=== PATIENT | female | born 1975 | race American Indian/Alaskan Native ===

== ENCOUNTER 2017-05-07 23:02 | Emergency (ER) | payer MEDICAID ==
[2017-05-07 23:03] VITALS: BMI 22.4
[2017-05-07 23:12] VITALS: BP 134/89; PULSE 88; RESP 18; TEMP 98.3; O2SAT 99
--- NOTE | 2017-05-07 23:35 | ED PDOC ---
Arrival/HPI - General Chief Complaint: Chest Pain Time Seen by Provider: 05/07/17 23:27 Historian: Patient - History of Present Illness Narrative History of Present Illness (Text): 05/07/17 23:29 A 42 year old female, whose past medical history include hyperthyroidism and heart murmur, presents to the emergency department complaining of 4 day duration , worsening sharp left peristernal chest, neck and left foot pain. The patient states that she was seen at a different emergency department last night for her symptoms and was discharged home. She states that she called EMS today because the sharp chest pain became worse. She notes that the sharp foot pain starts at the bottom of her foot and radiates upward. The patient states that she has also been seeing a flashing light through her left eye, feeling lightheaded and off balance. The patient denies fevers, chills, headache, shortness of breath, dyspnea on exertion, cough, abdominal pain, nausea, vomiting, diarrhea, back pain, urinary/bowel changes, trauma/ injury, drug/alcohol use or any other complaint. PMD: Dr. Barragan Time/Duration: Other (4 Days) Symptom Onset: Sudden Symptom Course: Unchanged Activities at Onset: Rest, Light Context: Home Past Medical History - Provider Review Nursing Documentation Reviewed: Yes - Tetanus Immunization Tetanus Immunization: Unknown - Past Medical History Past Medical History: No Previous - Endocrine/Metabolic Hx Hyperthyroidism: Yes - Psychiatric Hx Substance Use: No - Surgical History Hx Cholecystectomy: Yes - Suicidal Assessment Feels Threatened In Home Enviroment: No Family/Social History - Physician Review Nursing Documentation Reviewed: Yes Family/Social History: No Known Family HX Smoking Status: Heavy Smoker > 10 Cigarettes Daily Hx Alcohol Use: No Hx Substance Use: No Hx Substance Use Treatment: No Allergies/Home Meds Allergies/Adverse Reactions: Allergies No Known Allergies Allergy (Verified 06/28/14 05:43) Home Medications: Home Meds Medication Instructions Recorded Confirmed No Known Home Med 05/07/17 05/07/17 Review of Systems - Physician Review All systems were reviewed & negative as marked: Yes - Review of Systems Constitutional: absent: Fevers Respiratory: absent: SOB Physical Exam - Physical Exam Narrative Physical Exam (Text): 05/07/17 23:36 Constitutional: No acute distress. Head: Normocephalic. Atraumatic. Eyes: PERRL. ENT: Moist mucous membranes. Neck: Supple. Cardiovascular: Regular rate. Chest: No tenderness. Respiratory: Clear to auscultation bilaterally. GI: Soft. Nontender. Nondistended. Back: No CVA tenderness. Musculoskeletal: No tenderness or swelling of extremities. Skin: No rash. Patches of hypopigmentation. Neurologic: Alert, no focal deficit. Vital Signs Reviewed: Yes Vital Signs Temp Pulse Resp BP Pulse Ox 05/07/17 23:11 98.3 F 88 18 134/89 99 Temperature: Afebrile Blood Pressure: Normal Pulse: Regular Respiratory Rate: Normal Appearance: Positive for: Well-Appearing, Non-Toxic, Comfortable Pain Distress: None Mental Status: Positive for: Alert and Oriented X 3 Medical Decision Making ED Course and Treatment: 05/07/17 23:36 Impression: A 42 year old female presents to the emergency department complaining of 4 day duration sharp chest, foot, and neck pain. Plan: -- EKG -- Chest X-ray -- Urinalysis -- Labs -- Reassess and disposition Progress Notes: EKG: Ordered, reviewed, and independently interpreted the EKG. Rate : 99 BPM Rhythm : NSR Interpretation : No ST elevations or T-wave inversions. 05/08/17 01:02: Patient eloped. - Lab Interpretations Lab Results: 05/07/17 23:15 05/07/17 23:15 Lab Results 05/07/17 23:37: Urine Opiates Screen Negative, Urine Methadone Screen Negative, Ur Barbiturates Screen Negative, Ur Phencyclidine Scrn Negative, Ur Amphetamines Screen Negative, U Benzodiazepines Scrn Negative, U Oth Cocaine Metabols Negative, U Cannabinoids Screen Negative 05/07/17 23:37: Urine Color Yellow, Urine Appearance Sl cloudy, Urine pH 6.0, Ur Specific [place] 1.020, Urine Protein Trace H, Urine Glucose (UA) Negative, Urine Ketones Negative, Urine Blood Negative, Urine Nitrate Negative, Urine Bilirubin Negative, Urine Urobilinogen 0.2, Ur Leukocyte Esterase Negative, Urine RBC 0 - 2, Urine WBC 0 - 2, Ur Epithelial Cells 4 - 5, Urine Bacteria Small, Urine HCG, Qual Negative 05/07/17 23:15: Sodium 138, Potassium 3.4 L, Chloride 103, Carbon Dioxide 23, Anion Gap 15, BUN 7, Creatinine 0.7, Est GFR ( Amer) > 60, Est GFR (Non- Af Amer) > 60, Random Glucose 89, Calcium 9.5, Total Bilirubin 0.3, AST 32, ALT 21, Alkaline Phosphatase 37 L, Total Creatine Kinase 121, Troponin I < 0.01, Total Protein 8.1, Albumin 4.6, Globulin 3.6, Albumin/Globulin Ratio 1.3 05/07/17 23:15: WBC 5.0, RBC 3.89, Hgb 12.7, Hct 36.2, MCV 93.1, MCH 32.6, MCHC 35.1, RDW 13.4, Plt Count 303, MPV 8.7, Gran % 56.4, Lymph % (Auto) 33.8, [place] % (Auto) 8.0 H, Eos % (Auto) 1.6, Baso % (Auto) 0.2, Gran # 2.84, Lymph # (Auto ) 1.7, [place] # (Auto) 0.4, Eos # (Auto) 0.1, Baso # (Auto) 0.01 I have reviewed the lab results: Yes - EKG Interpretation Interpreted by ED Physician: Yes Type: 12 lead EKG - Scribe Statement The provider has reviewed the documentation as recorded by the Scribe Ladi Kaba Provider Scribe Attestation: All medical record entries made by the Scribe were at my direction and personally dictated by me. I have reviewed the chart and agree that the record accurately reflects my personal performance of the history, physical exam, medical decision making, and the department course for this patient. I have also personally directed, reviewed, and agree with the discharge instructions and disposition. Disposition/Present on Arrival - Present on Arrival Any Indicators Present on Arrival: No History of DVT/PE: No History of Uncontrolled Diabetes: No Urinary Catheter: No History of Decub. Ulcer: No History Surgical Site Infection Following: CABG - Mediastinitis, None - Disposition Have Diagnosis and Disposition been Completed?: No Diagnosis: Chest pain Disposition: ELOPEMENT - ER ONLY Disposition Time: 01:02 Condition: UNKNOWN Discharge Instructions (ExitCare): Chest Pain (ED) Referrals: Nuria Barragan MD [Primary Care Provider] - Follow up with primary Forms: [employer] ([place]ian)
[2017-05-08 00:14] LABS: BASO # 0.01 K/mm3 (0.0-2.0); BASO % 0.2 % (0.0-3.0); EOS # 0.1 (0.0-0.7); EOS % 1.6 % (1.5-5.0); GRAN # 2.84 (1.4-6.5); GRAN % 56.4 % (50.0-68.0); HEMOGLOBIN 12.7 g/dL (12.0-16.0); LYMPH # 1.7 (1.2-3.4); LYMPH % 33.8 % (22.0-35.0); MEAN CELL VOLUME 93.1 fl (80.0-105.0); MEAN CORPUSCULAR HEMOGLOBIN 32.6 pg (25.0-35.0); MEAN CORPUSCULAR HGB CONC 35.1 g/dl (31.0-37.0); MEAN PLATELET VOLUME 8.7 fl (7.0-11.0); MONO # 0.4 (0.1-0.6); RBC 3.89 10^6/uL (3.5-6.1); RED CELL DISTRIBUTION WIDTH 13.4 % (11.5-14.5)
[2017-05-08 00:16] LABS: URINE BILIRUBIN NEGATIVE (NEGATIVE); URINE BLOOD NEGATIVE (NEGATIVE); URINE GLUCOSE (UA) NEGATIVE (NEGATIVE); URINE LEUKOCYTE ESTERASE NEGATIVE Leu/uL (NEGATIVE); URINE PROTEIN TRACE mg/dL (<30 mg/dL); URINE UROBILINOGEN 0.2 E.U./dL (<1 E.U./dL)
[2017-05-08 00:18] LABS: URINE APPEARANCE SL CLOUDY (CLEAR); URINE COLOR YELLOW (YELLOW)
[2017-05-08 00:31] LABS: ALB/GLOB RATIO 1.3 (1.1-1.8); ALBUMIN 4.6 g/dL (3.0-4.8); ALT/SGPT 21 U/L (7-56); AST/SGOT 32 U/L (14-36); BLOOD UREA NITROGEN 7 mg/dL (7-21); CALCIUM 9.5 mg/dL (8.4-10.5); GFR AFRICAN-AMERICAN > 60; GFR NON-AFRICAN AMERICAN > 60
[2017-05-08 00:38] LABS: TROPONIN I < 0.01 ng/mL
[2017-05-08 00:55] LABS: HCG,QUALITATIVE URINE NEGATIVE (NEGATIVE)
[2017-05-08 00:57] LABS: URINE BACTERIA SMALL (NEG); URINE RBC 0 - 2 /hpf (0-2); URINE WBC 0 - 2 /hpf (0-6)
[2017-05-08 01:11] LABS: BARBITURATES, UR NEGATIVE (NEGATIVE); BENZODIAZEPINES, UR NEGATIVE (NEGATIVE); OPIATES, UR NEGATIVE (NEGATIVE); PHENCYCLIDINE, UR NEGATIVE (NEGATIVE)
--- NOTE | 2017-05-11 11:08 | CARD ---
APPROVED REPORT EKG Measurement Heart [id number] <Conclusion> Normal sinus rhythm Possible Left atrial enlargement J-point elevations 2,3,F, V 4 - 6
== END 2017-05-08 00:45 | disposition left against medical advice (07) ==
LOC: ED 23:02
DX: R07.9 Chest pain, unspecified (principal); F17.210 Nicotine dependence, cigarettes, uncomplicated

== ENCOUNTER 2018-06-14 11:16 | Outpatient (CLI) | payer MEDICARE | END 2018-06-14 11:17 | disposition home or self-care (01) | LOC: RAD 11:16 ==